=== PATIENT | male | born 1990 | race Caucasian/White ===

== ENCOUNTER 2017-12-20 11:39 | Emergency (ER) | END 2017-12-20 13:57 | disposition home or self-care (01) ==

== ENCOUNTER 2018-08-09 03:32 | Emergency (ER) | END 2018-08-09 10:04 | disposition home or self-care (01) ==

== ENCOUNTER 2019-01-24 12:08 | Emergency (ER) | payer BC ==
[~2019-01-24] VITALS: Ht 182.9 cm; Wt 91.5 kg
[~2019-01-24 12:08] MED LIST: ACET500C5 PO; CEPH500C PO; FAMO-96 PO; HYDR-3980 PO; IBUP-1542 PO; NAPR-985 PO
[2019-01-24 12:17] VITALS: Ht 182.9 cm; Wt 91.5 kg
[2019-01-24] MEDS ORDERED: SOD CHLORIDE 0.9% 1,000 ML IV STA (12:38)
[2019-01-24] MEDS ORDERED: morphine 4 MG/ML VIAL IV STA (12:38)
[2019-01-24] MEDS ORDERED: ONDANSETRON 4 MG INJ IV STA (12:38)
[2019-01-24] MEDS ORDERED: HYDR-4012 PO (14:20)
[2019-01-24] MEDS ORDERED: CIPR500T4 PO (14:44)
[2019-01-24] MEDS ORDERED: ONDA4TAB14 PO (14:44)
[2019-01-24] MEDS ORDERED: METR500T PO (14:44)
[2019-01-24] MEDS ORDERED: IBUP-1542 PO (14:44)
[2019-01-24] MEDS ORDERED: KETOROLAC 30 MG INJ IV STA (14:49)
--- NOTE | 2019-01-24 15:31 | ERD ---
ER Documentation Chief Complaint Chief Complaint ap x 1 wk, n/v/d x 2 days. fever complaint at home HPI Patient is a 28-year-old male with no medical problems who presents with abdominal pain. The patient also has vomiting and diarrhea. He says that it started "a few weeks ago". He said that he had fever last night and the pain was worse this morning. The pain is diffuse across his abdomen. The pain comes and goes and is sharp in nature. He tried [place]. He has bilateral testicular pain. Upon review of old medical records this is the patient's fourth visit to the ER since 2016. The patient does have a primary doctor. ROS All systems reviewed and are negative except as per history of present illness. Medications Home Meds Active Scripts Ondansetron (Ondansetron Odt) 4 Mg Tab.rapdis, 4 MG PO Q6H PRN for NAUSEA AND/OR VOMITING, #10 TAB Prov:TERA CARRERA MD 01/24/19 Ibuprofen* (Motrin*) 600 Mg Tab, 600 MG PO Q6H PRN for PAIN AND OR ELEVATED TEMP, #30 TAB Prov:TERA CARRERA MD 01/24/19 Metronidazole* (Flagyl*) 500 Mg Tablet, 500 MG PO TID for 7 Days, TAB Prov:TERA CARRERA MD 01/24/19 Ciprofloxacin Hcl* (Ciprofloxacin Hcl*) 500 Mg Tablet, 500 MG PO BID for 7 Days, TAB Prov:TERA CARRERA MD 01/24/19 Reported Medications Hydrocodone/Acetaminophen ([place] 7.5-325 Tablet) 1 Each Tablet, 1 EACH PO NEEDED, TAB 01/24/19 Discontinued Scripts Naproxen* (Naprosyn*) 500 Mg Tablet, 500 MG PO BID PRN for PAIN AND/OR INFLAMMATION, #20 TAB Prov:TRENT,IVANA 08/09/18 Hydrocodone/Acetaminophen ([place] 10-325 Tablet) 1 Each Tablet, 1 TAB PO Q6H PRN for PAIN, #7 TAB Prov:TRENT,IVANA 08/09/18 Cephalexin* (Cephalexin*) 500 Mg Capsule, 500 MG PO Q6 for 10 Days, #40 CAP Prov:TRENT,IVANA 08/09/18 Acetaminophen* (Tylophen*) 500 Mg Capsule, 1 CAP PO Q6H PRN for PAIN AND OR ELEVATED TEMP, #20 CAP Prov:JOSEPKAREN Hewitt PA-C 12/20/17 Famotidine* (Pepcid*) 20 Mg Tablet, 20 MG PO BID, #20 TAB Prov:KAREN CAR Marcelina BROUSSARD 12/20/17 Ibuprofen* (Motrin*) 600 Mg Tab, 600 MG PO Q6, #20 TAB Prov:SORAYA CRUZ MD 10/02/16 Allergies Allergies: Coded Allergies: No Known Allergy (Unverified , 01/24/19) PMhx/Soc Medical and Surgical Hx: pt denies Surgical Hx History of Surgery: No Anesthesia Reaction: No Hx Neurological Disorder: No Hx Respiratory Disorders: No Hx Cardiac Disorders: No Hx Psychiatric Problems: No Hx Miscellaneous Medical Probl: Yes (HERNIATED DISK) Hx Alcohol Use: No Hx Substance Use: No Hx Tobacco Use: No Smoking Status: Never smoker FmHx Family History: diabetes Physical Exam Vitals Vital Signs Date Temp Pulse Resp B/P (MAP) Pulse Ox O2 O2 Flow FiO2 Time Delivery Rate 01/24/19 90 16 128/80 99 Room Air 13:40 (96) 01/24/19 98.5 93 18 149/76 97 12:17 (100) Physical Exam Const: Moderate distress secondary to pain Head: Atraumatic Eyes: Normal Conjunctiva ENT: Normal External Ears, Nose and Mouth. Neck: Full range of motion. No meningismus. Resp: Clear to auscultation bilaterally Cardio: Regular rate and rhythm, no murmurs Abd: diffuse tenderness to palpation without rebound or guarding Skin: No petechiae or rashes Back: No midline or flank tenderness Ext: No cyanosis, or edema Neur: Awake and alert : Testicular pain bilaterally without swelling appreciated Result Diagram: 01/24/19 1332 01/24/19 1332 Results 24 hrs Laboratory Tests Test 01/24/19 12:50 01/24/19 13:32 Urine Color YELLOW Urine Clarity CLEAR Urine pH 6.0 Urine Specific [place] 1.018 Urine Ketones NEGATIVE mg/dL Urine Nitrite NEGATIVE mg/dL Urine Bilirubin NEGATIVE mg/dL Urine Urobilinogen NEGATIVE mg/dL Urine Leukocyte Esterase NEGATIVE Patricia/ul Urine Hemoglobin NEGATIVE mg/dL Urine Glucose NEGATIVE mg/dL Urine Total Protein NEGATIVE mg/dl White Blood Count 11.1 10^3/ul Red Blood Count 5.09 10^6/ul Hemoglobin 15.3 g/dl Hematocrit 44.8 % Mean Corpuscular Volume 88.0 fl Mean Corpuscular Hemoglobin 30.1 pg Mean Corpuscular Hemoglobin Concent 34.2 g/dl Red Cell Distribution Width 12.5 % Platelet Count 300 10^3/UL Mean Platelet Volume 9.5 fl Immature Granulocytes % 0.600 % Neutrophils % 85.8 % Lymphocytes % 8.1 % Monocytes % 5.1 % Eosinophils % 0.0 % Basophils % 0.4 % Nucleated Red Blood Cells % 0.0 /100WBC Immature Granulocytes # 0.070 10^3/ul Neutrophils # 9.5 10^3/ul Lymphocytes # 0.9 10^3/ul Monocytes # 0.6 10^3/ul Eosinophils # 0.0 10^3/ul Basophils # 0.0 10^3/ul Nucleated Red Blood Cells # 0.0 10^3/ul Sodium Level 138 mmol/L Potassium Level 3.8 mmol/L Chloride Level 96 mmol/L Carbon Dioxide Level 29 mmol/L Anion Gap 13 Blood Urea Nitrogen 9 mg/dl Creatinine 0.93 mg/dl Est Glomerular Filtrat Rate mL/min > 60 mL/min Glucose Level 118 mg/dl Calcium Level 9.7 mg/dl Total Bilirubin 0.3 mg/dl Direct Bilirubin 0.00 mg/dl Indirect Bilirubin 0.3 mg/dl Aspartate Amino Transf (AST/SGOT) 40 IU/L Alanine Aminotransferase (ALT/SGPT) 41 IU/L Alkaline Phosphatase 100 IU/L Total Protein 8.5 g/dl Albumin 4.8 g/dl Globulin 3.70 g/dl Albumin/Globulin Ratio 1.29 Lipase 65 U/L Current Medications Medications Dose Sig/Angelito Start Time Status Last (Trade) Ordered Route PRN Stop Time Admin Dose Reason Admin Sodium 1,000 ml @ Q1H STAT 01/24/19 DC 01/24/19 Chloride 1,000 mls/hr IV 12:38 01/24/19 13:36 13:37 Morphine 4 mg ONCE STAT 01/24/19 DC 01/24/19 Sulfate IV 12:38 01/24/19 13:35 (morphine) 12:39 Ondansetron 4 mg ONCE STAT 01/24/19 DC 01/24/19 HCl (Zofran IV 12:38 01/24/19 13:35 Inj) 12:39 Ketorolac 30 mg ONCE STAT 01/24/19 DC 01/24/19 Tromethamine IV 14:49 01/24/19 15:15 (Toradol) 14:50 Procedures/MDM Ultrasound of the scrotum shows no testicular torsion per radiology. CT abdomen pelvis shows acute colitis per radiology. Smoking Cessation Therapy: Pt. was lectured for greater than 3 minutes on the health risks of continued smoking and the benefits of cessation. Patient is a 28-year-old male who presents with acute abdominal pain. He was found to have acute colitis with a mildly elevated white blood cell count. He was given morphine, Zofran, and Toradol and feels much better and looks well. I believe outpatient management is appropriate. He has no other medical problems and is otherwise well-appearing. The patient will be given a prescription for Cipro, Flagyl, ibuprofen, and Zofran. He will to follow-up with his primary doctor within 24-48 hours. He can return sooner for any worsening symptoms. Departure Diagnosis: Primary Impression: Colitis Additional Impression: Abdominal pain Abdominal location: generalized Qualified Codes: R10.84 - Generalized abdominal pain Condition: Fair Patient Instructions: Abdominal Pain, Diverticulitis Additional Instructions: Call your primary care doctor TOMORROW for an appointment during the next 1-2 days.See the doctor sooner or return here if your condition worsens before your appointment time. TERA CARRERA MD Jan 24, 2019 15:31
[2019-01-24 15:44] VITALS: BP 130/74; PULSE 84; RESP 16
== END 2019-01-24 15:46 | disposition home or self-care (01) ==
LOC: FTE 12:08 → E/R 15:46
DX: K52.9 Noninfective gastroenteritis and colitis, unspecified (principal)
CPT/HCPCS: 74176; 76870; 80053; 81003; 83690; 85025; 96374; 96375; 99285; J1885; J2270; J2405; J7030